=== PATIENT | female | born 1995 | race Hispanic/Latino ===

== ENCOUNTER 2018-05-02 21:33 | Emergency (ER) | payer BC, OTHER ==
[2018-05-02 22:38] LABS: Absolute Lymphocytes (CBC) 1.6 K/uL (0.7-4.9); Absolute Monocytes 0.6 K/uL (0.1-1.3); Absolute Neutrophil 5.7 K/uL (1.8-8.0); Basophils % 0.7 % (0-1.3); Eosinophils % 2.4 % (0-4.4); Hematocrit 35.4 % (36.0-45.0); Lymphocytes % 19.7 % (15.3-44.8); MCH 25.6 pg (27.0-35.0); MCV 75.7 fL (80-100); MPV 8.7 fL (7.6-11.3); Monocytes % 7.3 % (3.3-12.3); RBC Red Blood Cell Count 4.68 M/uL (3.86-4.86)
--- NOTE | 2018-05-02 23:09 | RAD REPORT ---
EXAM DESCRIPTION: US - Transvaginal OB - 05/02/2018 10:54 pm CLINICAL HISTORY: ABD PAIN COMPARISON: No comparisons FINDINGS: A single normal size and shaped gestational sac is seen within the uterus. Within the sac is a single pole with crown-rump length measuring 11 mm corresponding to 7 weeks 2 days gestati onal age. MAIKOL 12/17/2018. Cardiac activity is normal measuring 153 BPM. No unexpected findings. Maternal adnexa showed no worrisome finding. IMPRESSION: Single live early intrauterine gestation as detailed above.
[2018-05-02] MEDS ORDERED: PROMETHAZINE 25 MG/ML VIAL ONE (23:24)
[2018-05-02 23:26] LABS: BUN Blood Urea Nitrogen 10 mg/dL (7-18); Bicarbonate 27 mmol/L (21-32); Glucose Level 82 mg/dL (74-106); HCG, Quantitative 117945 mIU/mL (1-3); Potassium 3.3 mmol/L (3.5-5.1); Sodium Level 140 mmol/L (136-145)
--- NOTE | 2018-05-02 23:31 | EDPHYS ---
Physician Documentation [facility] Name: Edwardo Gonzalez Age: 22 yrs Sex: Female : 1995 Arrival Date: 05/02/2018 Time: 21:38 Bed 6 Private MD: ED Physician [place] HPI: 05/02 23:27 This 22 yrs old Female presents to ER via Ambulatory with complaints of 8 jr8 WEEKS PREG, LOWER AB PAIN. 23:27 The patient presents to the emergency department with abdominal pain, of the right jr8 lower quadrant and left lower quadrant, that started today, described as crampy, sharp. The estimated gestational age is 8 weeks. course: care: private OB physician. Associated signs and symptoms: The patient has no apparent associated signs or symptoms. The patient has not experienced similar symptoms in the past. The patient has not recently seen a physician. 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 - Social history:: Smoking status: Patient/guardian denies using tobacco. - Ebola Screening: : No symptoms or risks identified at this time. ROS: 23:27 Eyes: Negative for injury, pain, redness, and discharge, ENT: Negative for injury, jr8 pain, and discharge, Neck: Negative for injury, pain, and swelling, Cardiovascular: Negative for chest pain, palpitations, and edema, Respiratory: Negative for shortness of breath, cough, wheezing, and pleuritic chest pain, Back: Negative for injury and pain, MS/Extremity: Negative for injury and deformity, Skin: Negative for injury, rash, and discoloration, Neuro: Negative for headache, weakness, numbness, tingling, and seizure. 23:27 Abdomen/GI: Positive for abdominal pain, Negative for nausea, vomiting, and diarrhea, abdominal distension, anorexia, dysphagia, hematemesis, black/tarry stool, rectal pain, rectal bleeding, bowel incontinence, flatulence. Exam: 23:27 Cardiovascular: Regular rate and rhythm with a normal S1 and S2. No gallops, murmurs, jr8 or rubs. Normal PMI, no JVD. No pulse deficits. Respiratory: Lungs have equal breath sounds bilaterally, clear to auscultation and percussion. No rales, rhonchi or wheezes noted. No increased work of breathing, no retractions or nasal flaring. Back: No spinal tenderness. No costovertebral tenderness. Full range of motion. Skin: Warm, dry with normal turgor. Normal color with no rashes, no lesions, and no evidence of cellulitis. MS/ Extremity: Pulses equal, no cyanosis. Neurovascular intact. Full, normal range of motion. Neuro: Awake and alert, GCS 15, oriented to person, place, time, and situation. Cranial nerves II-XII grossly intact. Motor strength 5/5 in all extremities. Sensory grossly intact. Cerebellar exam normal. Normal gait. 23:27 Abdomen/GI: Inspection: abdomen appears normal, Bowel sounds: active, all quadrants, Palpation: soft, in all quadrants, mild abdominal tenderness, in the suprapubic area and left lower quadrant, mass, is not appreciated, rebound tenderness, is not appreciated, voluntary guarding, is not appreciated, involuntary guarding, is not appreciated, no appreciated organomegaly, Indicators: McBurney's point is not tender, Pickens's sign is negative, Rovsing's sign is negative, Liver: no appreciated palpable abnormalities, tenderness, is not appreciated. Vital Signs: 21:56 BP 113 / 71; Pulse 79; Resp 18; Temp 98.1; Pulse Ox 99% on R/A; Weight 53.98 kg (R); ak1 Height 4 ft. 11 in. (149.86 cm) (R); Pain 7/10; 22:21 BP 111 / 72; Pulse 90; Resp 18; Pulse Ox 98% on R/A; Pain 7/10; ea 23:45 BP 120 / 76; Pulse 80; Resp 18; Temp 97.8; Pulse Ox 99% on R/A; Pain 0/10; ea 21:56 Body Mass Index 24.03 (53.98 kg, 149.86 cm) ak1 MDM: 22:09 Patient medically screened. jr8 23:30 Data reviewed: vital signs, nurses notes, lab test result(s), radiologic studies, jr8 ultrasound, and as a result, I will discharge patient. Data interpreted: Pulse oximetry: on room air is 98 %. Interpretation: normal. Counseling: I had a detailed discussion with the patient and/or guardian regarding: the historical points, exam findings, and any diagnostic results supporting the discharge/admit diagnosis, lab results, radiology results, the need for outpatient follow up, an OB/Gyne specialist, to return to the emergency department if symptoms worsen or persist or if there are any questions or concerns that arise at home. 23:31 ED course: Patient without elevation in WBC count. Fetus normal appearing on US. jr8 Discussed with patient more then likely pain from broad ligament or from scar. 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 05/02 22:15 Order name: Quantitative Hcg; Complete Time: 23:29 05/02 22:15 Order name: Basic Metabolic Panel; Complete Time: 23:29 05/02 22:15 Order name: CBC with Diff; Complete Time: 23:21 05/02 23:04 Order name: Urine Dipstick--Ancillary (enter results); Complete Time: 02:25 ms 05/02 23:04 Order name: Urine --Ancillary (enter results); Complete Time: 02:25 ms 05/02 22:15 Order name: Urine Test (obtain specimen); Complete Time: 22:18 05/02 22:15 Order name: IV Saline Lock; Complete Time: 22:33 05/02 22:15 Order name: Labs collected and sent; Complete Time: 22:33 05/02 22:30 Order name: US Transvaginal Ob; Complete Time: 23:21 05/02 22:15 Order name: NPO; Complete Time: 22:18 05/02 22:15 Order name: Urine Dipstick-Ancillary (obtain specimen); Complete Time: 22:18 Administered Medications: 23:26 Drug: Phenergan 12.5 mg Route: IVP; Site: right antecubital; ea 23:48 Follow up: Response: Nausea unchanged lp1 23:36 Drug: Zofran 4 mg Route: IVP; Site: right antecubital; ea 05/03 00:05 Follow up: Response: No adverse reaction ea 05/02 23:48 Drug: Potassium Chloride 40 mEq Route: PO; lp1 05/03 00:05 Follow up: Response: No adverse reaction ea 05/02 23:48 Drug: Pepcid 20 mg Route: IVP; Site: right antecubital; ea 05/03 00:05 Follow up: Response: No adverse reaction ea Disposition: :18 Co-signature as Attending Physician, [place] MD Available for consultation at ps1 all times. Disposition: 05/02/18 23:31 Discharged to Home. Impression: Lower abdominal pain, unspecified. - Condition is Stable. - Discharge Instructions: Abdominal Pain, Adult, Abdominal Pain During . - Medication Reconciliation Form, Thank You Letter, Antibiotic Education, Prescription Opioid Use form. - Follow up: Private Physician; When: 2 - 3 days; Reason: Recheck today's complaints, Continuance of care, Re-evaluation by your physician. - Problem is new. - Symptoms have improved. Signatures: Dispatcher [employer] EDMS Faustina Oleary, RN RN lp1 Anastacio Peña PA PA jr8 Yeimy Holman RN RN ak1 Taylor Dumont RN RN [place] MD MD ps1 Corrections: (The following items were deleted from the chart) 00:09 07 23:31 05/02/2018 23:31 Discharged to Home. Impression: Lower abdominal pain, ea unspecified. Condition is Stable. Forms are Medication Reconciliation Form, Thank You Letter, Antibiotic Education, Prescription Opioid Use. Follow up: Private Physician; When: 2 - 3 days; Reason: Recheck today's complaints, Continuance of care, Re-evaluation by your physician. Problem is new. Symptoms have improved. jr8
--- NOTE | 2018-05-02 23:31 | ER ---
Nurse's Notes [facility] Name: Edwardo Gonzalez Age: 22 yrs Sex: Female : 1995 Arrival Date: 05/02/2018 Time: 21:38 Bed 6 Private MD: Diagnosis: Lower abdominal pain, unspecified Presentation: 05/02 21:57 Presenting complaint: Patient states: lower abd pain started today. pt sees Dr. Wilson ak1 for OB services. Transition of care: patient was not received from another setting of care. Onset of symptoms was May 02, 2018. Risk Assessment: Do you want to hurt yourself or someone else? Patient reports no desire to harm self or others. Initial Sepsis Screen: Does the patient meet any 2 criteria? No. Patient's initial sepsis screen is negative. Does the patient have a suspected source of infection? No. Patient's initial sepsis screen is negative. Care prior to arrival: None. 21:57 Method Of Arrival: Ambulatory ak1 21:57 Acuity: MARY 3 ak1 Triage Assessment: 22:01 General: Appears in no apparent distress. Behavior is calm, cooperative. Pain: ak1 Complains of pain in suprapubic area, right lower quadrant and left lower quadrant. EENT: No signs and/or symptoms were reported regarding the EENT system. Neuro: No deficits noted. Cardiovascular: No deficits noted. Respiratory: No deficits noted. GI: Reports lower abdominal pain. : Reports cramping, in lower abd Denies discharge, vaginal bleeding. Derm: No signs and/or symptoms reported regarding the dermatologic system. Musculoskeletal: No signs and/or symptoms reported regarding the musculoskeletal system. 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 - Social history:: Smoking status: Patient/guardian denies using tobacco. - Ebola Screening: : No symptoms or risks identified at this time. Screenin:03 Abuse screen: Denies threats or abuse. Denies injuries from another. Nutritional ak1 screening: No deficits noted. Tuberculosis screening: No symptoms or risk factors identified. Fall Risk None identified. Assessment: 22:03 Reassessment: Patient appears in no apparent distress at this time. No changes from ak1 previously documented assessment. see triage assessment. 22:19 General: Appears uncomfortable, Behavior is calm, cooperative, appropriate for age. ea Pain: Complains of pain in right lower quadrant and righ upper quadrant Pain currently is 9 out of 10 on a pain scale. Quality of pain is described as aching, Is intermittent. Neuro: Level of Consciousness is awake, alert, obeys commands, Oriented to person, place, time, situation. Cardiovascular: Patient's skin is warm and dry. Respiratory: Airway is patent Respiratory effort is even, unlabored, Respiratory pattern is regular, symmetrical, Breath sounds are clear bilaterally. GI: Abdomen is non-distended, Bowel sounds present X 4 quads. GI: Reports lower abdominal pain, upper abdominal pain, diarrhea, vomiting. : No signs and/or symptoms were reported regarding the genitourinary system. Derm: Skin is pink, warm \T\ dry. 22:35 Reassessment: Pt taken to ultrasound. ea 23:00 Reassessment: Patient and/or family updated on plan of care and expected duration. Pain ea level reassessed. Patient is alert, oriented x 3, equal unlabored respirations, skin warm/dry/pink. 05/03 00:05 Reassessment: Patient and/or family updated on plan of care and expected duration. Pain ea level reassessed. Patient is alert, oriented x 3, equal unlabored respirations, skin warm/dry/pink. Discharge instructions given to patient, verbalized the understanding of instruction. Vital Signs: 05/02 21:56 BP 113 / 71; Pulse 79; Resp 18; Temp 98.1; Pulse Ox 99% on R/A; Weight 53.98 kg (R); ak1 Height 4 ft. 11 in. (149.86 cm) (R); Pain 7/10; 22:21 BP 111 / 72; Pulse 90; Resp 18; Pulse Ox 98% on R/A; Pain 7/10; ea 23:45 BP 120 / 76; Pulse 80; Resp 18; Temp 97.8; Pulse Ox 99% on R/A; Pain 0/10; ea 21:56 Body Mass Index 24.03 (53.98 kg, 149.86 cm) ak1 ED Course: 21:38 Patient arrived in ED. al2 21:45 Taylor Dumont, RN is Primary Nurse. ea 21:56 Arm band placed on Patient placed in an exam room, on a stretcher, Patient notified of ak1 wait time. 22:00 Triage completed. ak1 22:03 Patient has correct armband on for positive identification. Bed in low position. Call ak1 light in reach. Side rails up X 1. Adult w/ patient. Pulse ox on. NIBP on. 22:03 Urine collected: clean catch specimen. ak1 22:09 Anastacio Peña PA is PHCP. jr8 22:09 [place] MD is Attending Physician. jr8 22:32 Inserted saline lock: 20 gauge in right antecubital area, using aseptic technique. ea Blood collected. 22:54 US Transvaginal Ob In Process Unspecified. EDMS 05/03 00:06 No provider procedures requiring assistance completed. IV discontinued, intact, ea bleeding controlled, No redness/swelling at site. Pressure dressing applied. Administered Medications: 05/02 23:26 Drug: Phenergan 12.5 mg Route: IVP; Site: right antecubital; ea 23:48 Follow up: Response: Nausea unchanged lp1 23:36 Drug: Zofran 4 mg Route: IVP; Site: right antecubital; ea 05/03 00:05 Follow up: Response: No adverse reaction ea 05/02 23:48 Drug: Potassium Chloride 40 mEq Route: PO; lp1 05/03 00:05 Follow up: Response: No adverse reaction ea 05/02 23:48 Drug: Pepcid 20 mg Route: IVP; Site: right antecubital; ea 05/03 00:05 Follow up: Response: No adverse reaction ea Outcome: 05/02 23:31 Discharge ordered by . jr8 05/03 00:06 Discharged to home ambulatory, with family. ea Condition: improved Discharge instructions given to patient, Instructed on discharge instructions, follow up and referral plans. Demonstrated understanding of instructions, follow-up care. 00:09 Patient left the ED. ea Signatures: Dispatcher [employer] EDMS Faustina Oleary RN RN lp1 Anastacio Peña PA PA jr8 Yeimy Holman RN RN ak1 Taylor Dumont RN RN Zarina Gomez2 Corrections: (The following items were deleted from the chart) 00:08 00:06 Discharge instructions given to patient, Instructed on discharge instructions, ea follow up and referral plans. medication usage, Demonstrated understanding of instructions, follow-up care, medications, ea 00:08 00:06 Prescriptions given X 2, ea ea
[2018-05-02] MEDS ORDERED: POTASSIUM CL SA 10 MEQ TAB PO ONE (23:49)
[2018-05-02] MEDS ORDERED: ONDANSETRON 4 MG/2 ML VIAL ONE (23:52)
[2018-05-02] MEDS ORDERED: FAMOTIDINE 20 MG/2 ML VIAL IV ONE (23:52)
[2018-05-03 00:01] LABS: Urine Blood NEGATIVE (NEG); Urine Glucose NEGATIVE (NEG); Urine Protein NEGATIVE (NEG); Urine Specific Gravity >1.030 (1.005-1.030); Urine pH 5.5 (5.0-7.0)
[2018-05-03 00:19] VITALS: BP 120/76; TEMP 97.8; O2SAT 99
== END 2018-05-03 00:09 | disposition home or self-care (01) ==
LOC: ER 21:33
DX: O26.891 Other specified pregnancy related conditions, first trimester (principal); R10.30 Lower abdominal pain, unspecified; Z3A.08 8 weeks gestation of pregnancy; Z88.1 Allergy status to other antibiotic agents
CPT/HCPCS: 36415; 76817; 80048; 81003; 81025; 84702; 85025; 96374; 96375; 99284; J2405; J2550

== ENCOUNTER 2020-01-30 21:45 | Emergency (ER) | payer OTHER, SELFPAY ==
--- OUTSIDE RECORDS SUMMARY | 2020-01-30 21:48 | XMS REPORT ---
:1995 Author Organization [facility] t Address [address] [place] [address] Care Team Providers Name Role Phone Unavailable Unavailable Unavailable Payers Payer Name Policy Type Policy Number Effective Date Expiration D ate Problems This patient has no known problems. Allergies, Adverse Reactions, Alerts Allergy Name Allergy Status Severity Reaction(s) Onset Inactive Treat ing Comments Type Date Date Clinician amoxicillin DA Active MO 2018-11 00:00:0 0 amoxicillin DA Active MO 2018-11 00:00:0 0 Medications This patient has no known medications. Results Test Description Test Time Test Comments Text Results Atomic Results Result Comments HGB HCT 2018-11-29 21:09:00 Test Item Value Reference Range Comments HEMOGLOBIN (test code = HGB) 8.7 g/dL 10.7-13.9 HEMATOCRIT (test code = HCT) 28.4 % 32.1-42.1 AG HEPATITIS B [id number] 16:47:00 Test Item Value Reference Range Comments AG HEPATITIS B SURFACE (test code = HBSAG) NONREACTIVE NONRE ACTIVE IS CONSENT FORM SIGNED FOR HIV TESTING? YAB HEPATITIS C [id number] 16:47:00 Test Item Value Reference Range Comments AB HEPATITIS C (test code = HCVAB) NONREACTIVE NONREACTIVE SIGNAL TO CUTOFF (test code = CUTOFF) 0.10 <0.80 IS CONSENT FORM SIGNED FOR HIV TESTING? YAB [id number] 16:47:00 Test Item Value Reference Range Comments AB TREPONEMA (test code = TREPAB) NONREACTIVE NONREACTIVE IS CONSENT FORM SIGNED FOR HIV TESTING? YAB HIV 1 16:47:00 Test Item Value Reference Range Comments AB HIV 1 2 (test code = NONREACTIVE NONREACTIVE Done b y Siemens Centaur 4th [id number]) Gen HIV Ag/Ab Co mbo Screen IS CONSENT FORM SIGNED FOR HIV TESTING? YCBC W/AUTO [id number] 15:28:00 Test Item Value Reference Range Comments WHITE BLOOD CELL (test code = WBC) 11.8 K/mm3 6.6-12.1 RED BLOOD CELL (test code = RBC) 3.79 M/mm3 3.45-5.01 HEMOGLOBIN (test code = HGB) 9.1 g/dL 10.7-13.9 HEMATOCRIT (test code = HCT) 29.3 % 32.1-42.1 MEAN CELL VOLUME (test code = MCV) 77 fL 84.1-94.8 MEAN CELL HGB (test code = MCH) 24.0 pg 27-35 MEAN CELL HGB CONCETRATION (test code = MCHC) 31.1 gm/dL 32 .2-34.1 RED CELL DISTRIBUTION WIDTH (test code = RDW) 14.7 % 12 .4-16.5 PLATELET COUNT (test code = PLT) 223 K/mm3 133-385 IMMATURE PLATELET FRACTION (test code = IPF) 0.0 % 0.0 -10.8 MEAN PLATELET VOLUME (test code = MPV) 11.2 fl 9.1-12.7 NEUTROPHIL % (test code = NT%) 71.9 % 56.5-79.4 LYMPHOCYTE % (test code = LY%) 16.4 % 14.3-34.3 MONOCYTE % (test code = MO%) 7.6 % 5.1-10.4 EOSINOPHIL % (test code = EO%) 1.7 % 0.1-3.0 BASOPHIL % (test code = BA%) 0.3 % 0.1-1.0 NEUTROPHIL # (test code = NT#) 8.5 K/mm3 LYMPHOCYTE # (test code = LY#) 1.9 K/mm3 MONOCYTE # (test code = MO#) 0.9 K/mm3 EOSINOPHIL # (test code = EO#) 0.20 K/mm3 BASOPHIL # (test code = BA#) 0.0 K/mm3 RBC MORPHOLOGY REQUIRED (test code = RBCM) NORMAL TRISTON L PLATELET MORPHOLOGY REQUIRED (test code = PLTMR) NORMAL NORMAL
--- OUTSIDE RECORDS SUMMARY | 2020-01-30 21:48 | XMS REPORT | Summary of Care ---
:1995 Author Organization [facility] - [facility] Address [address] [place] [address] Care Team Providers Name Role Phone Ravi Turner APPRAISAL MANAGER Primary Care Provider Reason for Visit Reason Comments NEXPLANON check Encounter Details Date Type Department Care Team Description [facility] (Primary Dx) [address] [facility] [address] [place], [place] [address] [place] [address] [phone] Allergies Active Allergy Reactions Severity Noted Date Comments Amoxicillin Unknown - See comments 09/11/2015 documented as of this encounter (statuses as of 06/07/2019) Medications Medication Sig Dispensed Refills Start Date End Date Status vitamin Take 1 tablet 100 tablet 3 09/15/2017 019 Discontinued w/FA tablet by mouth daily. docusate calcium Take 1 capsule 60 capsule 1 09/15/20172018 Discontinued 240 mg capsule by mouth once daily as needed for Constipation. ibuprofen 600 mg Take 1 tablet 30 tablet 1 09/15/2017 06/06/20 19 Discontinued tablet by mouth every 6 (six) hours as needed for Pain (scale 1-3) or Pain (scale 4-6) (Pain). Take with food or milk. HYDROcodone-aceta Take 1 tablet 20 tablet 0 09/15/2017 019 Discontinued minophen 5-325 mg by mouth every tablet 6 (six) hours as needed for Pain (scale 4-6) or Pain (scale 7-10). ferrous sulfate Take 1 tablet 90 tablet 2 09/15/2017 9 Discontinued 325 mg (65 mg by mouth 3 iron) tablet (three) times daily with meals. foLIC acid 1 mg Take 1 tablet 30 tablet 3 09/15/2017 9 Discontinued tablet by mouth daily. Hospital, Clinic, or Other Ordered Dose Route Frequency Start Date End Date Status Facility Administered Medication medroxyPROGESTERone 150 mg IM [id number] 02/19/2019 Active (DEPO-PROVERA) injection 150 mgIndications: Encounter for management and injection of depo-Provera documented as of this encounter (statuses as of 06/07/2019) Active Problems No known active problemsdocumented as of this encounter (statuses as of 06/07/2019) Resolved Problems Problem Noted Date Resolved Date Anemia due to blood loss, acute 09/15/2017 10/05/20 18 with 37 weeks completed gestation 09/14/2017 10/05/2018 Premature labor 09/14/2017 10/05/2018 Meconium in amniotic fluid 09/14/2017 10/05/2018 37 weeks gestation of 09/14/2017 02/06/20 19 Liveborn by 09/14/2017 10/05/2018 Fetus abdominal wall defect, fetus 1 09/14/2017 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 documented as of this encounter Last Filed Vital Signs Vital Sign Reading Time Taken Comments Blood Pressure 115/73 06/06/2019 2:37 PM CDT Pulse 94 06/06/2019 2:37 PM CDT Temperature 37.2 C (98.9 F) 06/06/2019 2:37 PM CDT Respiratory Rate 16 06/06/2019 2:37 PM CDT Oxygen Saturation - - Inhaled Oxygen Concentration - - Weight 54.1 kg (119 lb 4 oz) 06/06/2019 2:37 PM CDT Height 149.9 cm (4' 11") 06/06/2019 2:37 PM CDT Body Mass Index 24.09 06/06/2019 2:37 PM CDT documented in this encounter Progress Notes Timothy Turner, APPRAISAL MANAGER - 06/06/2019 2:45 PM CDT Chief complaint: Chief Complaint Patient presents with NEXPLANON check HPI Patient is a here for Nexplanon check. Patient denies any complaints. Pating desires to continue with Nexplanon as BCM. Histories OB History Para Term AB Living 2 2 2 0 0 2 SAB TAB Ectopic Multiple Live Births 2 # Outcome Date GA Lbr Tom/2nd Weight Sex Delivery Anes PTL Lv 2 Term 11/29/18 37w0d F SEC CHICA 1 Term 09/14/17 37w2d M SEC CHICA Obstetric Comments Both pregnancies affected by gastroschesis Past Medical History: Diagnosis Date Menstrual disorder 2011 Ovarian cyst Scoliosis Syphilis treated Family History Problem Relation Age of Onset No Significant Medical Problems Mother Hypertension Father No Significant Medical Problems Sister Asthma Brother Diabetes Maternal Aunt Diabetes Maternal Uncle No Significant Medical Problems Paternal Aunt No Significant Medical Problems Paternal Uncle Breast Cancer Maternal Grandmother Diabetes Maternal Grandmother Diabetes Maternal Grandfather Diabetes Paternal Grandmother Hypertension Paternal Grandmother High cholesterol Paternal Grandmother Family Status Relation Name Status Mo Alive Fa Alive Sis Alive Bro Alive MAunt Alive MUnc Alive PAunt Alive PUnc Alive MGMo MGFa Alive PGMo Alive PGFa Alive Past Surgical History: Procedure Laterality Date APPENDECTOMY 2014 with subsequent rupture SECTION N/A 09/14/2017 Surgeon: Gerson Wilson MD; Location: [facility] Labor and Delivery OR Location Social History Socioeconomic History Marital status: Single Spouse name: Not on file Number of children: Not on file Years of education: Not on file Highest education level: Not on file Occupational History Not on file Social Needs Financial resource strain: Not on file Food insecurity: Worry: Not on file Inability: Not on file Transportation needs: Medical: Not on file Non-medical: Not on file Tobacco Use Smoking status: Former Smoker Last attempt to quit: 02/05/2017 Years since quittin.3 Smokeless tobacco: Never Used Substance and Sexual Activity Alcohol use: Yes Comment: socially Drug use: No Types: Marijuana Comment: quit 5 yrs ago Sexual activity: Yes Partners: Male control/protection: Coitus interruptus Comment: last sexual intercourse 02/04/2019 Lifestyle Physical activity: Days per week: Not on file Minutes per session: Not on file Stress: Not on file Relationships Social connections: Talks on phone: Not on file Gets together: Not on file Attends protestant service: Not on file Active member of club or organization: Not on file Attends meetings of clubs or organizations: Not on file Relationship status: Not on file Intimate partner violence: Fear of current or ex partner: Not on file Emotionally abused: Not on file Physically abused: Not on file Forced sexual activity: Not on file Other Topics Concern Not on file Social History Narrative Patient lives with boyfriend and children. Social History Substance and Sexual Activity Sexual Activity Yes Partners: Male control/protection: Coitus interruptus Comment: last sexual intercourse 02/04/2019 Labs No new labs Radiology No new radiology. Allergies Edwardo is allergic to amoxicillin. Medications Edwardo has a current medication list which includes the following Facility- Administered Medications:medroxyprogesterone. Review of Systems Constitutional: Negative for activity change, appetite change, fatigue, unexpected weight change, weight gain and weight loss. HENT: Negative for sore throat. Eyes: Negative for visual disturbance. Respiratory: Negative for cough and shortness of breath. Breasts: Negative for discharge, mass, pain and unequal size. Cardiovascular: Negative for chest pain, palpitations and leg swelling. Gastrointestinal: Negative. Negative for abdominal pain, anal bleeding, blood in stool, constipation, diarrhea, nausea, rectal pain and vomiting. Genitourinary: Negative for bladder incontinence, dysuria, urgency, flank pain, vaginal bleeding, vaginal discharge, genital sores, vaginal pain and pelvic pain. Skin: Negative for color change and rash. Neurological: Negative. Negative for dizziness, syncope and headaches. Psychiatric/Behavioral: Negative for confusion, self-injury and sleep disturbance. The patient is not nervous/anxious. Hematological: Negative for cold intolerance and heat intolerance. Endocrine: Negative for hair loss, cold intolerance, heat intolerance, weight gain and weight loss. BP 115/73 (BP Location: Right arm, Patient Position: Sitting, BP CUFF SIZE: Adult Small) | Pulse 94 | Temp 37.2 C (98.9 F) (Oral) | Resp 16 | Ht 4' 11" (1.499 m) | Wt 119 lb 4 oz (54.1 kg) | LMP 06/06/2019 (Approximate) | BMI 24.09 kg/m Pregravid BMI: Could not be calculated Physical Exam Vitals reviewed. Constitutional: She is oriented to person, place, and time. She appears well- developed and well-nourished. Her body habitus is normal. Cardiovascular: Regular rate and rhythm. No peripheral edema present. Pulmonary/Chest: Normal inspiratory effort. Neuro/Psychiatric: Inappropriate mood and affect. She is oriented to person, place, and time. Skin: Skin normal. No lesion, no rash and no ulceration present. Nexplanon Palpated in right hand. Assessment/Plan Nexplanon in place (primary encounter diagnosis) Comment: Nexplanon palpated in right arm. Plan: Patient desires to continue with Nexplanon contraception. Provider has reviewed risks, benefits and alternatives contraception methods. Provider has also reviewed use, side effects and effectiveness of desires BCM vs other BCM. Encouraged abstinence until menses. Encouraged use of condoms as back up x 1 month and for safer sex. Return to clinic for WWE. Discussed treatment options. Medications as ordered. Reviewed patient instructions and provided printed copy. This visit did not involve counseling and coordination that comprised more than 50% of the visit time. KIN Garcia 06/07/2019 8:59 AM documented in this encounter Plan of Treatment Date Type Specialty Care Team Description 07/09/2019 Office Visit [facility]ell[facility] Arley Doll, [facility] [address] [place], [place] [address] [phone] Health Maintenance Due Date Last Done Comments MENINGOCOCCAL B VACCINES ( of 12/21/2005 2 - Risk Bexsero 2-dose series) VARICELLA VACCINES (1 of 2 - 12/21/2008 13+ 2-dose series) HPV VACCINES (1 - Female 12/21/2010 3-dose series) DTaP,Tdap,and Td Vaccines (1 - 12/21/2014 Tdap) INFLUENZA VACCINE (#1) 2019 09/15/2017 CHLAMYDIA SCREENING 02/06/2020 02/05/2019, 11/18/2018, 01/19/2016 PAP SMEAR 02/05/2022 02/05/2019 PNEUMOCOCCAL 0-64 YEARS Aged Out No longe r eligible based COMBINED SERIES on patient's age to complete this to [facility] documented as of this encounter Results Not on filedocumented in this encounter Visit Diagnoses Diagnosis Nexplanon in place - Primary Presence of subdermal contraceptive thien ce documented in this encounter Insurance Payer Benefit Plan Subscriber ID Effective Phone Address Typ e / Group Dates [facility] xxxxxxxxx 2019-Jennyfer [phone] Medicaid WOMEN nt 2005 [place] [address] documented as of this encounter Advance Directives Name Relationship Healthcare Agent Communication Relationship Ruslan Kessler Significant Other Primary healthcare agent
--- OUTSIDE RECORDS SUMMARY | 2020-01-30 21:48 | XMS REPORT | Summary of Care ---
:1995 Author Organization [facility] - Health Address [address] [place] [address] Care Team Providers Name Role Phone Ravi Turner KIN Primary Care Provider Encounter Details Date Type Department Care Team Description 06/06/2019 Orders Only [facility] Doctor Unassigned, No [address] [facility] [place] [address] [address] [place] [address] Allergies Active Allergy Reactions Severity Noted Date Comments Amoxicillin Unknown - See comments 09/11/2015 documented as of this encounter (statuses as of 06/06/2019) Medications Medication Sig Dispensed Refills Start Date End Date Status vitamin w/FA Take 1 tablet by 100 tablet 3 09/15/2017 Active tablet mouth daily. docusate calcium 240 Take 1 capsule by 60 capsule 1 09/15/2017 Active mg capsule mouth once daily as needed for Constipation. ibuprofen 600 mg Take 1 tablet by 30 tablet 1 09/15/2017 Active tablet mouth every 6 (six) hours as needed for Pain (scale 1-3) or Pain (scale 4-6) (Pain). Take with food or milk. HYDROcodone-acetamino Take 1 tablet by 20 tablet 0 09/15/2017 Active phen 5-325 mg tablet mouth every 6 (six) hours as needed for Pain (scale 4-6) or Pain (scale 7-10). ferrous sulfate 325 Take 1 tablet by 90 tablet 2 09/15/2017 Active mg (65 mg iron) mouth 3 (three) tablet times daily with meals. foLIC acid 1 mg Take 1 tablet by 30 tablet 3 09/15/2017 Active tablet mouth daily. Hospital, Clinic, or Other Ordered Dose Route Frequency Start Date End Date Status Facility Administered Medication medroxyPROGESTERone 150 mg IM [id number] 02/19/2019 Active (DEPO-PROVERA) injection 150 mgIndications: Encounter for management and injection of depo-Provera documented as of this encounter (statuses as of 06/06/2019) Active Problems No known active problemsdocumented as of this encounter (statuses as of 06/06/2019) Resolved Problems Problem Noted Date Resolved Date [...] as of this encounter (statuses as of 06/06/2019) Immunizations Name Administration Dates Next Due Influenza [...] of this encounter Last Filed Vital Signs Not on filedocumented in this encounter Plan of Treatment Date Type Specialty Care Team Description 06/06/2019 Office Visit OB Raes Timothy Turner, [employer] [address] [place], [place] [address] [phone] 07/09/2019 Office Visit [facility] rAley Doll, WHCNP [address] [place], [place] [address] [phone] Health Maintenance Due Date Last Done Comments MENINGOCOCCAL B VACCINES (1 of 12/21/2005 2 - Risk Bexsero 2-dose series) VARICELLA VACCINES (1 of 2 - 12/21/2008 13+ 2-dose series) HPV VACCINES (1 - Female 12/21/2010 3-dose series) DTaP,Tdap,and Td Vaccines (1 - 12/21/2014 Tdap) INFLUENZA VACCINE 06/24/2019 09/15/2017 CHLAMYDIA SCREENING 02/06/2020 02/05/2019, 11/18/2018, 01/19/2016 PAP SMEAR 02/05/2022 02/05/2019 PNEUMOCOCCAL 0-64 YEARS Aged Out No longe r eligible based COMBINED SERIES on patient's age to complete this to [facility] documented as of this encounter Procedures Procedure Name Priority Date/Time Associated Diagnosis Comme nts NO SHOW OR MISSED Routine 06/06/2019 2:29 PM APPOINTMENT POLICY CDT ACKNOWLEDGEMENT documented in this encounter Results Not on filedocumented in this encounter Insurance Payer Benefit Plan Subscriber ID Effective Phone Address Typ e / Group Dates [facility] xxxxxxxxx 2019-Prese [phone] Medicaid [place]OM[place] [id number] [place] [address] documented as of this encounter Advance Directives Name Relationship Healthcare Agent Communication Relationship Ruslan Kessler Significant Other Primary healthcare agent
--- OUTSIDE RECORDS SUMMARY | 2020-01-30 21:49 | XMS REPORT | Summary of Care ---
:1995 Author Organization [facility] - [facility] Address [address] [place] [address] Care Team Providers Name Role Phone Ravi Turner BIODIESEL PRODUCT DEVELOPMENT MANAGER Primary Care Provider Reason for Visit Reason Comments NEXPLANON check Encounter Details Date Type Department Care Team Description [facility] (Primary Dx) [address] [facility] [address] [place], [place] [address] [place] [address] [phone] Allergies Active Allergy Reactions Severity Noted Date [...] Facility Administered Medication medroxyPROGESTERone 150 mg IM [id number] 02/19/2019 Active (DEPO-PROVERA) injection 150 mgIndications: Encounter [...] in this encounter Progress Notes Timothy Turner, BIODIESEL PRODUCT DEVELOPMENT MANAGER - 06/06/2019 2:45 PM CDT Chief [...] N/A 09/14/2017 Surgeon: Gerson Wilson MD; Location: [facility] Labor and Delivery OR Location Social History [...] file Gets together: Not on file Attends denominational service: Not on file Active member of [...] Visit [facility] [address] [place], [place] [address] [phone] Health Maintenance Due Date Last Done Comments [...] on patient's age to complete this to [facility] documented as of this encounter Results Not on filedocumented in this encounter Visit Diagnoses Diagnosis Nexplanon in place - Primary Presence of subdermal contraceptive thien ce documented in this encounter Insurance Payer Benefit Plan Subscriber ID Effective Phone Address Typ e / Group Dates [facility] xxxxxxxxx 2019-Jennyfer [phone] Medicaid WOMEN nt 2005 [place] [address] documented as of this encounter Advance Directives Name Relationship Healthcare Agent Communication Relationship Ruslan Kessler Significant Other Primary healthcare agent
[2020-01-30] MEDS ORDERED: NA CHLORIDE 0.9% 1,000 ML ONE (22:19)
[2020-01-30 22:31] LABS: Urine Amorphous Sediment 3+ /HPF (NONE SEEN); Urine Bacteria <20 /HPF (<20); Urine Culture Reflex Order NOT NEEDED; Urine RBC <5 /HPF (NONE SEEN)
[2020-01-30 22:44] LABS: Absolute Lymphocytes (CBC) 1.2 K/uL (0.7-4.9); Basophils % 0.4 % (0-1.3); Hematocrit 40.4 % (36.0-45.0); Lymphocytes % 10.2 % (15.3-44.8); MPV 8.5 fL (7.6-11.3); RBC Red Blood Cell Count 4.96 M/uL (3.86-4.86)
[2020-01-30 22:57] LABS: BUN Blood Urea Nitrogen 14 mg/dL (7-18); Bicarbonate 26 mmol/L (21-32); Glucose Level 86 mg/dL (74-106); Potassium 3.7 mmol/L (3.5-5.1); Sodium Level 142 mmol/L (136-145)
[2020-01-31 00:12] LABS: Urine Blood NEGATIVE (NEG); Urine Glucose NEGATIVE (NEG); Urine Protein NEGATIVE (NEG); Urine Specific Gravity >1.030 (1.005-1.030)
--- NOTE | 2020-01-31 01:27 | EDPHYS ---
Physician Documentation [facility] Name: Edwadro Gonzalez Age: 24 yrs Sex: Female : 1995 Arrival Date: 01/30/2020 Time: 21:50 Bed 20 Private MD: ED Physician Ronni Marie HPI: 01/29 22:16 This 24 yrs old Female presents to ER via Ambulatory with complaints of rn Dizziness, Headache, Vision Problem. 22:16 The patient presents with lightheadedness. The patient presents with feeling faint. rn Onset: The symptoms/episode began/occurred just prior to arrival. Context: occurred at home, occurred while the patient was standing. Modifying factors: The symptoms are alleviated by nothing, the symptoms are aggravated by changing position. Severity of symptoms: At their worst the symptoms were moderate in the emergency department the symptoms have resolved. The patient has not experienced similar symptoms in the past. 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 Now feels better, felt heart racing. No chest pain/sob/abd pain. No vaginal bleeding. reports intermittent left sided headaches for 2-3 months, had some pain around this episode as well. . DATA ARCHITECT MANAGER: 21:55 LMP 01/18/2020 ca1 Historical: - Allergies: 21:55 Amoxicillin; ca1 - Home Meds: 21:55 None [Active]; ca1 - PMHx: 21:55 scoliosis; ca1 - PSHx: 21:55 Appendectomy; ; ca1 - Immunization history:: Adult Immunizations up to date, Flu vaccine is up to date. - Social history:: Smoking status: Patient denies any tobacco usage or history of. - Family history:: not pertinent. - Hospitalizations: : No recent hospitalization is reported. ROS: 22:16 Constitutional: Negative for fever, chills, and weight loss, Eyes: Negative for injury, rn pain, redness, and discharge, Neck: Negative for injury, pain, and swelling, Cardiovascular: Negative for chest pain, and edema, Respiratory: Negative for shortness of breath, cough, wheezing, and pleuritic chest pain, Abdomen/GI: Negative for abdominal pain, nausea, vomiting, diarrhea, and constipation, Back: Negative for injury and pain, : Negative for injury, bleeding, discharge, and swelling, MS/Extremity: Negative for injury and deformity, Skin: Negative for injury, rash, and discoloration, Neuro: Negative for numbness, tingling, and seizure. Exam: 22:16 Constitutional: This is a well developed, well nourished patient who is awake, alert, rn and in no acute distress. Head/Face: Normocephalic, atraumatic. Eyes: Pupils equal round and reactive to light, extra-ocular motions intact. Lids and lashes normal. Conjunctiva and sclera are non-icteric and not injected. Cornea within normal limits. Periorbital areas with no swelling, redness, or edema. Neck: Trachea midline, no thyromegaly or masses palpated, and no cervical lymphadenopathy. Supple, full range of motion without nuchal rigidity, or vertebral point tenderness. No Meningismus. Cardiovascular: Regular rate and rhythm. No pulse deficits. Respiratory: Speaking full sentences. No increased work of breathing, no retractions or nasal flaring. Abdomen/GI: soft, non-tender Skin: Warm, dry MS/ Extremity: Pulses equal, no cyanosis. Neurovascular intact. Full, normal range of motion. Equal circumference. Neuro: Awake and alert, GCS 15, oriented to person, place, time, and situation. Cranial nerves II-XII grossly intact. Motor strength 5/5 in all extremities. Sensory grossly intact. Cerebellar exam normal. 22:20 ECG was reviewed by the Attending Physician. rn Vital Signs: 21:51 BP 128 / 86; Pulse 91; Resp 17 S; Temp 97.7(TE); Pulse Ox 100% on R/A; Weight 55.79 kg ca1 (R); Height 4 ft. 11 in. (149.86 cm) (R); Pain 7/10; 23:57 BP 112 / 76; Pulse 89; Resp 16 S; Pulse Ox 100% on R/A; jd3 01/30 01:26 BP 118 / 81; Pulse 92; Resp 17 S; Pulse Ox 100% on R/A; jd3 01/29 21:51 Body Mass Index 24.84 (55.79 kg, 149.86 cm) ca1 MDM: 01/29 21:57 Patient medically screened. rn 01/30 01:25 Differential diagnosis: cardiac arrhythmia, generalized weakness, hypovolemia, rn idiopathic dizziness, near-syncope, PE, early infection, migraine. Data reviewed: vital signs, nurses notes, lab test result(s), EKG, radiologic studies, CT scan, and as a result, I will discharge patient. Counseling: I had a detailed discussion with the patient and/or guardian regarding: the historical points, exam findings, and any diagnostic results supporting the discharge/admit diagnosis, lab results, radiology results, the need for outpatient follow up, to return to the emergency department if symptoms worsen or persist or if there are any questions or concerns that arise at home. Response to treatment: the patient's condition has returned to base line, the patient is now symptom free, and as a result, I will discharge patient. Special discussion: I discussed with the patient/guardian in detail that at this point there is no indication for admission to the hospital. It is understood, however, that if the symptoms persist or worsen the patient needs to return immediately for re-evaluation. 01/29 22:11 Order name: CBC with Diff; Complete Time: 23:07 rn 01/29 22:11 Order name: Basic Metabolic Panel; Complete Time: 23:07 rn 01/29 22:11 Order name: Urine Microscopic Only; Complete Time: 23:07 rn 01/29 22:11 Order name: D-Dimer; Complete Time: 23:07 rn 01/29 23:13 Order name: Urine --Ancillary (enter results); Complete Time: 00:19 01/29 23:13 Order name: Urine Dipstick--Ancillary (enter results); Complete Time: 00:19 01/29 22:11 Order name: CT Head Brain wo Cont rn 01/29 22:11 Order name: IV Start; Complete Time: 22:34 rn 01/29 22:11 Order name: Urine Test (obtain specimen); Complete Time: 22:15 rn 01/29 22:11 Order name: Urine Dipstick-Ancillary (obtain specimen); Complete Time: 22:15 rn 01/29 22:11 Order name: EKG; Complete Time: 22:12 rn 01/29 22:11 Order name: EKG - Nurse/Tech; Complete Time: 22:15 rn 01/29 23:08 Order name: CT Chest For PE Angio rn EC/08 22:20 Rate is 88 beats/min. Rhythm is regular. QRS [place] is Normal. NM interval is normal. QRS rn interval is normal. QT interval is normal. No Q waves. T waves are Normal. No ST changes noted. Clinical impression: Normal ECG. Interpreted by me. Reviewed by me. Administered Medications: 22:37 Drug: NS 0.9% 1000 ml Route: IV; Rate: 1000 ml; Site: right antecubital; jd3 23:35 Follow up: Response: No adverse reaction; IV Status: Completed infusion; IV Intake: jd3 1000ml Disposition: 01/31/20 01:27 Discharged to Home. Impression: Near syncope. - Condition is Stable. - Discharge Instructions: Near-Syncope. - Medication Reconciliation Form, Thank You Letter, Antibiotic Education, Prescription Opioid Use form. - Follow up: Private Physician; When: As needed; Reason: Recheck today's complaints, Re-evaluation by your physician. - Problem is new. - Symptoms have improved. Signatures: Dispatcher [employer] EDMS Ronni Marie MD MD rn Davies, Jonathon, RN RN jd3 Acob, SHARLA Santamaria RN [facility] Corrections: (The following items were deleted from the chart) 01/30 01:40 01:27 01/31/2020 01:27 Discharged to Home. Impression: Near syncope. Condition is jd3 Stable. Forms are Medication Reconciliation Form, Thank You Letter, Antibiotic Education, Prescription Opioid Use. Follow up: Private Physician; When: As needed; Reason: Recheck today's complaints, Re-evaluation by your physician. Problem is new. Symptoms have improved. rn
--- NOTE | 2020-01-31 01:27 | ER ---
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 Reports headache for couple months that starts at the back of the eyes and goes down to the neck and ear. Reports seeing flashing lights with the headache. Coronavirus screen: Proceed with normal triage. Patient denies a cough. Patient denies shortness of breath or difficulty breathing. Patient denies measured and/or subjective temperature greater than 100.4F prior to today's visit. Patient denies travel on a cruise ship or to a country the [facility] currently lists as an affected area. Patient denies contact with known and/or suspected case of COVID-19. Ebola Screen: Patient negative for fever greater than or equal to 101.5 degrees Fahrenheit, and additional compatible Ebola Virus Disease symptoms Patient denies exposure to infectious person. Patient denies travel to an Ebola-affected area in the 21 days before illness onset. No symptoms or risks identified at this time. Initial Sepsis Screen: Does the patient meet any 2 criteria? No. Patient's initial sepsis screen is negative. Does the patient have a suspected source of infection? No. Patient's initial sepsis screen is negative. Risk Assessment: Do you want to hurt yourself or someone else? Patient reports no desire to harm self or others. Onset of symptoms was January 30, 2020. 21:51 Method Of Arrival: Ambulatory ca1 21:51 Acuity: MARY 3 ca1 RN ADMISSION: 21:55 LMP 01/18/2020 ca1 Historical: - Allergies: 21:55 Amoxicillin; ca1 - Home Meds: 21:55 None [Active]; ca1 - PMHx: 21:55 scoliosis; ca1 - PSHx: 21:55 Appendectomy; ; ca1 - Immunization history:: Adult Immunizations up to date, Flu vaccine is up to date. - Social history:: Smoking status: Patient denies any tobacco usage or history of. - Family history:: not pertinent. - Hospitalizations: : No recent hospitalization is reported. Screenin:03 Abuse screen: Denies threats or abuse. Nutritional screening: No deficits noted. jd3 Tuberculosis screening: No symptoms or risk factors identified. Fall Risk Ambulatory Aid- None/Bed Rest/Nurse Assist (0 pts). Gait- Normal/Bed Rest/Wheelchair (0 pts) Mental Status- Oriented to own ability (0 pts). Total [place] Fall Scale indicates No Risk (0-24 pts). Assessment: 22:01 General: Appears in no apparent distress. uncomfortable, Behavior is calm, cooperative, jd3 appropriate for age. Pain: Complains of pain in head Quality of pain is described as aching, pressure. Neuro: Level of Consciousness is awake, alert, obeys commands, Oriented to person, place, time, situation, Pupils are PERRLA, Reports dizziness. Cardiovascular: Denies chest pain, Heart tones S1 S2 present Capillary refill < 3 seconds Patient's skin is warm and dry. Respiratory: Airway is patent Respiratory effort is even, unlabored, Respiratory pattern is regular, symmetrical, Breath sounds are clear bilaterally. Denies cough, shortness of breath. GI: No signs and/or symptoms were reported involving the gastrointestinal system. Patient currently denies constipation, diarrhea, nausea, vomiting. : No signs and/or symptoms were reported regarding the genitourinary system. EENT: Reports flashing lights and vision loss with headache. Derm: Skin is intact, Skin is dry, Skin is normal, Skin temperature is warm. Musculoskeletal: Circulation, motion, and sensation intact. Range of motion: intact in all extremities. 23:57 Reassessment: Patient appears in no apparent distress at this time. No changes from jd3 previously documented assessment. Patient and/or family updated on plan of care and expected duration. Pain level reassessed. Patient is alert, oriented x 3, equal unlabored respirations, skin warm/dry/pink. awaiting results. 01/30 01:25 Reassessment: Patient appears in no apparent distress at this time. Patient and/or jd3 family updated on plan of care and expected duration. Pain level reassessed. Patient is alert, oriented x 3, equal unlabored respirations, skin warm/dry/pink. awaiting results. 01:37 Reassessment: Patient appears in no apparent distress at this time. Patient and/or jd3 family updated on plan of care and expected duration. Pain level reassessed. Patient is alert, oriented x 3, equal unlabored respirations, skin warm/dry/pink. reported understanding of discharge instructions. Patient states feeling better. Vital Signs: 01/29 21:51 BP 128 / 86; Pulse 91; Resp 17 S; Temp 97.7(TE); Pulse Ox 100% on R/A; Weight 55.79 kg ca1 (R); Height 4 ft. 11 in. (149.86 cm) (R); Pain 7/10; 23:57 BP 112 / 76; Pulse 89; Resp 16 S; Pulse Ox 100% on R/A; jd3 01/30 01:26 BP 118 / 81; Pulse 92; Resp 17 S; Pulse Ox 100% on R/A; jd3 01/29 21:51 Body Mass Index 24.84 (55.79 kg, 149.86 cm) ca1 ED Course: 01/29 21:50 Patient arrived in ED. es 21:54 Triage completed. ca1 21:55 Arm band placed on right wrist. ca1 21:57 Ronni Marie MD is Attending Physician. rn 22:00 Eliseo Woodruff RN is Primary Nurse. jd3 22:03 Patient has correct armband on for positive identification. Bed in low position. Call jd3 light in reach. Side rails up X 1. surveillance monitor on. Pulse ox on. NIBP on. 22:34 Inserted saline lock: 20 gauge in right antecubital area, using aseptic technique. jd3 Blood collected. 22:37 CT Head Brain wo Cont In Process Unspecified. EDMS 01/30 01:07 CT Chest For PE Angio In Process Unspecified. EDMS 01:38 No provider procedures requiring assistance completed. IV discontinued, intact, jd3 bleeding controlled, No redness/swelling at site. Pressure dressing applied. Administered Medications: 01/29 22:37 Drug: NS 0.9% 1000 ml Route: IV; Rate: 1000 ml; Site: right antecubital; jd3 23:35 Follow up: Response: No adverse reaction; IV Status: Completed infusion; IV Intake: jd3 1000ml Intake: 23:35 IV: 1000ml; Total: 1000ml. jd3 Outcome: 01/30 01:27 Discharge ordered by . rn 01:39 Discharged to home ambulatory. jd3 01:39 Condition: stable 01:39 Discharge instructions given to patient, Instructed on discharge instructions, follow up and referral plans. Demonstrated understanding of instructions, follow-up care. 01:40 Patient left the ED. jd3 Signatures: Dispatcher [employer] Piedad Jones Roman, MD MD rn Davies, Jonathon, RN RN jd3 Hina Vivar RN RN ca1
[2020-01-31 01:48] VITALS: TEMP 97.7; O2SAT 100
[2020-01-31 01:51] VITALS: BP 118/81
--- NOTE | 2020-01-31 10:14 | RAD REPORT ---
EXAM DESCRIPTION: CT - Head Brain Wo Cont - 01/31/2020 3:58 am CLINICAL HISTORY: Weakness and dizziness. Headache. COMPARISON: None. TECHNIQUE: CT scan of the brain without IV contrast. This exam was performed according to our depa rtmental dose-optimization program, which includes automated exposure control, adjustment of the mA a nd/or kV according to patient size and/or use of iterative reconstruction technique. FINDINGS: The ventricles, cisterns, and sulci are age-appropriate. No evidence of acute infarction, intracrania l hemorrhage, extra-axial fluid collection, or midline shift. No air-fluid levels are seen in the par anasal sinuses to suggest acute sinusitis. No depressed skull fracture. IMPRESSION: No acute intracranial findings. Electronically signed by: Paul Meier MD 01/30/2020 10:44 PM CDT Due to temporary technical issues with the PACS/Fluency reporting system, reports are being signed by the in house radiologist as a courtesy to ensure prompt reporting. The interpreting radiologist is f ully responsible for the content of the report.
--- NOTE | 2020-01-31 10:17 | RAD REPORT ---
EXAM DESCRIPTION: CT - Chest For Pe Angio - 01/31/2020 4:00 am CLINICAL HISTORY: The patient is 24 years old and is Female; palpitations, near syncope, elevated ddimer TECHNIQUE: Axial computed tomographic angiography images of the chest with intravenous contrast. S agittal and coronal reformatted images were created and reviewed. This CT exam was performed using one or more of the following dose reduction techniques: automated exposure control, adjustment of t he mA and/or kV according to patient size, and/or use of iterative reconstruction technique. MIP reconstructed images were created and reviewed. COMPARISON: No relevant prior studies available. FINDINGS: PULMONARY ARTERIES: Unremarkable. No pulmonary embolism. AORTA: No acute findings. No thoracic aortic aneurysm. LUNGS: Unremarkable. No mass. No consolidation. PLEURAL SPACE: Unremarkable. No significant effusion. No pneumothorax. HEART: Unremarkable. No cardiomegaly. No significant pericardial effusion. No evidence of RV dysfunction. BONES/JOINTS: No acute fracture. No dislocation. SOFT TISSUES: Unremarkable. LYMPH NODES: Unremarkable. No enlarged lymph nodes. IMPRESSION: Normal chest CTA. No pulmonary embolism. Electronically signed by: Nahomi Melgar MD 01/31/2020 1:13 AM CDT Due to temporary technical issues with the PACS/Fluency reporting system, reports are being signed by the in house radiologist as a courtesy to ensure prompt reporting. The interpreting radiologist is charlee gentilely responsible for the content of the report.
--- NOTE | 2020-02-01 07:39 | EKG ---
Test Date: 2020-01-30 Test Time: 22:18:27 Photoengraving Finisher: ANASTASIIA MEASUREMENT RESULTS: Intervals: Rate: 88 MS: 124 QRSD: 84 QT: 364 QTc: 440 [place]: P: 30 MS: 124 QRS: 68 T: 36 INTERPRETIVE STATEMENTS: Normal sinus rhythm Normal ECG No previous ECG available for comparison Electronically Signed On 02-01-20 07:35:01 CDT by Case Slater
== END 2020-01-31 01:40 | disposition home or self-care (01) ==
LOC: ER 21:45
DX: R55 Syncope and collapse (principal); Z88.1 Allergy status to other antibiotic agents
CPT/HCPCS: 36415; 70450; 71275; 80048; 81003; 81015; 81025; 85025; 85379; 93005; 96360; 99284; J7030; Q9967

== ENCOUNTER 2020-12-06 06:44 | Emergency (ER) | payer SELFPAY ==
--- NOTE | 2020-12-06 07:06 | ER ---
Nurse's Notes [facility] Name: Edwardo Gonzalez Age: 24 yrs Sex: Female : 1995 Arrival Date: 12/06/2020 Time: 06:45 Bed 4 Private MD: Diagnosis: Anosmia Presentation: 12/06 06:54 Chief complaint: Patient states: woke up at 4 AM and couldn't smell or taste, had em cough, and [place], denies fever. Coronavirus screen: Client denies travel out of the [place] in the last 14 days. runny nose, loss of taste or smell, Client presents with at least one sign or symptom that may indicate coronavirus-19. Standard/surgical mask placed on the client. Provider contacted for isolation considerations. Ebola Screen: Patient negative for fever greater than or equal to 101.5 degrees Fahrenheit, and additional compatible Ebola Virus Disease symptoms Patient denies exposure to infectious person. Patient denies travel to an Ebola-affected area in the 21 days before illness onset. No symptoms or risks identified at this time. Initial Sepsis Screen: Does the patient meet any 2 criteria? No. Patient's initial sepsis screen is negative. Does the patient have a suspected source of infection? No. Patient's initial sepsis screen is negative. Risk Assessment: Do you want to hurt yourself or someone else? Patient reports no desire to harm self or others. Onset of symptoms was December 06, 2020. 06:54 Method Of Arrival: Ambulatory em 06:54 Acuity: MARY 4 em Historical: - Allergies: 06:58 Amoxicillin; em - PMHx: 06:58 scoliosis; em - PSHx: 06:58 Appendectomy; ; em - Immunization history:: Adult Immunizations up to date. - Social history:: Smoking status: Patient denies any tobacco usage or history of. Vital Signs: 06:54 BP 112 / 87; Pulse 94; Resp 18; Temp 98.2(O); Pulse Ox 100% on R/A; Weight 53.07 kg; em Height 4 ft. 11 in. (149.86 cm); Pain 0/10; 06:54 Body Mass Index 23.63 (53.07 kg, 149.86 cm) em ED Course: 06:45 Patient arrived in ED. cl3 06:52 Zoila, Albaro, MD is Attending Physician. tw4 06:57 Triage completed. em 06:58 Arm band placed on. em 07:08 No provider procedures requiring assistance completed. Patient did not have IV access em during this emergency room visit. Administered Medications: No medications were administered Outcome: 07:05 Discharge ordered by . tw4 07:08 Medical screen evaluation completed per provider. Patient declined treatment. em 07:09 Following a medical screening exam, the patient was provided information regarding em alternative care sites and resources available per registration personnel. 07:09 Condition: good em 07:09 Patient left the ED. em Signatures: Parish Edwards, RN RN em Albaro Cummings MD MD tw4 Salo Alvarez cl3
--- NOTE | 2020-12-06 07:06 | EDPHYS ---
Physician Documentation [facility] Name: Edwardo Gonzalez Age: 24 yrs Sex: Female : 1995 Arrival Date: 12/06/2020 Time: 06:45 Bed 4 Private MD: ED Physician Albaro Cummings HPI: 12/06 07:06 This 24 yrs old Female presents to ER via Ambulatory with complaints of tw4 Headache, Shortness Of Breath. 07:06 The patient complains of pain to the forehead. Onset: The symptoms/episode tw4 began/occurred today. Associated signs and symptoms: The patient has no apparent associated signs or symptoms. Severity of symptoms: At its worst the pain was moderate, in the emergency department the pain is unchanged. The patient has not experienced similar symptoms in the past. Historical: - Allergies: 06:58 Amoxicillin; em - PMHx: 06:58 scoliosis; em - PSHx: 06:58 Appendectomy; ; em - Immunization history:: Adult Immunizations up to date. - Social history:: Smoking status: Patient denies any tobacco usage or history of. ROS: 07:06 Constitutional: Negative for fever, chills, and weight loss, Eyes: Negative for injury, tw4 pain, redness, and discharge, Cardiovascular: Negative for chest pain, palpitations, and edema, Respiratory: Negative for shortness of breath, cough, wheezing, and pleuritic chest pain, Abdomen/GI: Negative for abdominal pain, nausea, vomiting, diarrhea, and constipation, Back: Negative for injury and pain, MS/Extremity: Negative for injury and deformity, Skin: Negative for injury, rash, and discoloration. Exam: 07:06 Constitutional: This is a well developed, well nourished patient who is awake, alert, tw4 and in no acute distress. Head/Face: Normocephalic, atraumatic. Chest/axilla: Normal chest wall appearance and motion. Nontender with no deformity. No lesions are appreciated. Cardiovascular: Regular rate and rhythm with a normal S1 and S2. No gallops, murmurs, or rubs. Normal PMI, no JVD. No pulse deficits. Respiratory: Lungs have equal breath sounds bilaterally, clear to auscultation and percussion. No rales, rhonchi or wheezes noted. No increased work of breathing, no retractions or nasal flaring. Abdomen/GI: Soft, non-tender, with normal bowel sounds. No distension or tympany. No guarding or rebound. No evidence of tenderness throughout. MS/ Extremity: Pulses equal, no cyanosis. Neurovascular intact. Full, normal range of motion. Neuro: Awake and alert, GCS 15, oriented to person, place, time, and situation. Cranial nerves II-XII grossly intact. Motor strength 5/5 in all extremities. Sensory grossly intact. Cerebellar exam normal. Normal gait. Vital Signs: 06:54 BP 112 / 87; Pulse 94; Resp 18; Temp 98.2(O); Pulse Ox 100% on R/A; Weight 53.07 kg; em Height 4 ft. 11 in. (149.86 cm); Pain 0/10; 06:54 Body Mass Index 23.63 (53.07 kg, 149.86 cm) em MDM: 06:52 Patient medically screened. tw4 07:06 Data reviewed: vital signs, nurses notes. Medical screen evaluation completed. EMTALA tw4 emergency medical condition absent. Administered Medications: No medications were administered Disposition: 12/06/20 07:05 Discharged to Home. Impression: Anosmia. - Condition is Stable. - Discharge Instructions: Viral Respiratory Infection. - Medication Reconciliation Form, Thank You Letter, Antibiotic Education, Prescription Opioid Use form. - Follow up: Private Physician; When: Upon discharge from the Emergency Department; Reason: Recheck today's complaints, Continuance of care, Re-evaluation by your physician. - Problem is new. - Symptoms have improved. Signatures: Parish Edwards RN RN em Albaro Cummings MD MD tw4 Corrections: (The following items were deleted from the chart) 07:09 07:05 12/06/2020 07:05 Discharged to Home. Impression: Anosmia. Condition is Stable. em Forms are Medication Reconciliation Form, Thank You Letter, Antibiotic Education, Prescription Opioid Use. Follow up: Private Physician; When: Upon discharge from the Emergency Department; Reason: Recheck today's complaints, Continuance of care, Re-evaluation by your physician. Problem is new. Symptoms have improved. tw4
[2020-12-06 07:13] VITALS: BP 112/87; TEMP 98.2; O2SAT 100
== END 2020-12-06 07:09 | disposition home or self-care (01) ==
LOC: ER 06:44
DX: R43.0 Anosmia (principal); Z88.1 Allergy status to other antibiotic agents
CPT/HCPCS: 99281

== ENCOUNTER 2022-04-25 19:56 | Emergency (ER) | payer SELFPAY ==
[2022-04-25] MEDS ORDERED: ONDANSETRON 4 MG/2 ML VIAL ONE (20:40)
[2022-04-25] MEDS ORDERED: FAMOTIDINE 20 MG/2 ML VIAL IV ONE (20:40)
[2022-04-25] MEDS ORDERED: NA CHLORIDE 0.9% 1,000 ML ONE ×2 (20:40→22:06)
[2022-04-25 20:43] LABS: Absolute Lymphocytes (CBC) 0.7 K/uL (0.7-4.9); Hematocrit 39.1 % (36.0-45.0); Lymphocytes % 6.5 % (15.3-44.8); MCV 83.1 fL (80-100); MPV 8.5 fL (7.6-11.3); RBC Red Blood Cell Count 4.71 M/uL (3.86-4.86)
[2022-04-25 21:06] LABS: ALT/SGPT 18 U/L (12-78); AST/SGOT 8 U/L (15-37); Albumin 4.1 g/dL (3.4-5.0); Alkaline Phosphatase 96 U/L (45-117); BUN Blood Urea Nitrogen 14 mg/dL (7-18); Bicarbonate 24 mmol/L (21-32); Bilirubin Direct 0.2 mg/dL (0-0.2); Bilirubin Total 0.7 mg/dL (0.2-1.0); Glomerular Filtration Rate 116 ml/min (=/>90); Glucose Level 100 mg/dL (74-106); Magnesium 2.2 mg/dL (1.8-2.4); Protein, Total 8.4 g/dL (6.4-8.2); Sodium Level 138 mmol/L (136-145); Troponin High Sensitivity < 3.0 pg/mL (<58.9)
[2022-04-25 21:07] LABS: Potassium 2.9 mmol/L (3.5-5.1)
[2022-04-25 21:12] LABS: Urine Blood 2+ (Negative); Urine Glucose Negative (Negative); Urine Protein 1+ (Negative); Urine Specific Gravity 1.025 (1.005-1.030)
[2022-04-25] MEDS ORDERED: KETOROLAC 30 MG/ML INJ ONE (21:24)
[2022-04-25] MEDS ORDERED: POTASSIUM CL SA 10 MEQ TAB PO ONE (21:24)
[2022-04-25 21:31] LABS: Barbiturates NEGATIVE (NEGATIVE); Benzodiazepines NEGATIVE (NEGATIVE); Cocaine NEGATIVE (NEGATIVE); METHAMPHETAM NEGATIVE (NEGATIVE); Methadone NEGATIVE (NEGATIVE); Opiates NEGATIVE (NEGATIVE); Phencyclidine NEGATIVE (NEGATIVE); THC Cannibis POSITIVE (NEGATIVE)
--- NOTE | 2022-04-25 22:00 | RAD REPORT ---
EXAM DESCRIPTION: RAD - Chest Single View - 04/25/2022 8:59 pm CLINICAL HISTORY: CHEST PAIN COMPARISON: None TECHNIQUE: AP portable chest image was obtained 04/25/2022 8:59 pm . FINDINGS: Lungs are clear. Heart and vasculature are normal. No measurable pleural effusion and no p neumothorax. No acute bony abnormality seen. No acute aortic findings suspected. IMPRESSION: No acute cardiopulmonary process.
--- NOTE | 2022-04-25 22:07 | RAD REPORT ---
EXAM DESCRIPTION: CT - Abdomen Pelvis W Contrast - 04/25/2022 9:34 pm CLINICAL HISTORY: Epigastric pain COMPARISON: CT study January 2015 TECHNIQUE: Biphasic, helical CT imaging of the abdomen and pelvis was performed following 100 ml non -ionic IV contrast. No oral contrast administered. All CT scans are performed using dose optimization technique as appropriate and may include automated exposure control or mA/KV adjustment according to patient size. FINDINGS: No suspicious findings in the lung bases. The liver, spleen, and pancreas show no suspicious findings. Gallbladder and biliary tree are also wi thout suspicious finding. Symmetric renal function is seen with no hydronephrosis or suspicious renal mass. No pyelonephritis o r acute parenchymal process. No bladder abnormalities. No adrenal abnormalities. Uterus and ovaries s how no suspicious findings. No dilated bowel loops or bowel wall thickening. Appendectomy clips are in place. No free air, free f luid or inflammatory stranding. No hernia, mass or bulky lymphadenopathy. No suspicious bony findings. IMPRESSION: Contrast enhanced CT abdomen and pelvis showing no acute or emergent finding.
[2022-04-25 22:16] LABS: Urine Specific Gravity/Preg 1.025 (1.005-1.030)
[2022-04-25] MEDS ORDERED: PROMETHAZINE INJ 25 MG/ML AMP ONE (22:29)
--- NOTE | 2022-04-25 23:45 | EDPHYS ---
Physician Documentation [facility] Name: Edwardo Gonzalez Age: 26 yrs Sex: Female : 1995 Arrival Date: 04/25/2022 Time: 19:57 Bed 20 Private MD: ED Physician Arie Gagnon HPI: 04/25 20:10 This 26 yrs old Female presents to ER via Wheelchair with complaints of Chest pm1 Pain, Shortness Of Breath. 20:10 The patient or guardian reports chest pain that is located primarily in the mid-sternal pm1 area. The pain does not radiate. Associated signs and symptoms: Pertinent positives: abdominal pain, nausea, shortness of breath, vomiting, Pertinent negatives: cough. The chest pain is described as aching. Duration: The patient or guardian reports a single episode, that is still ongoing. Modifying factors: The symptoms are alleviated by nothing. the symptoms are aggravated by nothing. Severity of pain: in the emergency department the pain is actually worse. The patient has not experienced similar symptoms in the past. The patient has not recently seen a physician. 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 - Social history:: Smoking status: Patient denies any tobacco usage or history of. Patient uses street drugs, marijuana. ROS: 20:10 Constitutional: Negative for fever, chills, and weight loss. pm1 20:10 Back: Negative for injury and pain, MS/Extremity: Negative for injury and deformity, Skin: Negative for injury, rash, and discoloration, Neuro: Negative for headache, weakness, numbness, tingling, and seizure. 20:10 Cardiovascular: Positive for chest pain, Negative for edema, palpitations. 20:10 Respiratory: Positive for shortness of breath, Negative for cough. 20:10 Abdomen/GI: Positive for abdominal pain, nausea and vomiting, of the epigastric area, Negative for diarrhea. 20:10 All other systems are negative. Exam: 20:10 Constitutional: This is a well developed, well nourished patient who is awake, alert, pm1 and in no acute distress. Head/Face: Normocephalic, atraumatic. 20:10 Back: No spinal tenderness. No costovertebral tenderness. Full range of motion. Skin: Warm, dry with normal turgor. Normal color with no rashes, no lesions, and no evidence of cellulitis. MS/ Extremity: Pulses equal, no cyanosis. Neurovascular intact. Full, normal range of motion. 20:10 Cardiovascular: Rate: tachycardic, Rhythm: regular, Pulses: 20:10 Respiratory: Exam negative for acute changes, respiratory distress, shortness of breath, Breath sounds: are clear throughout. 20:10 Abdomen/GI: Inspection: abdomen appears normal, Palpation: soft, in all quadrants, mild abdominal tenderness, in the epigastric area. 20:10 Neuro: Exam negative for acute changes, Orientation: is normal, Mentation: is normal, Motor: is normal, moves all fours. Vital Signs: 20:00 BP 118 / 86; Pulse 107; Resp 18; Pulse Ox 100% on R/A; vc1 20:06 BP 128 / 81; Pulse 96; Resp 12; Pulse Ox 100% on R/A; Weight 40.37 kg (R); Height 4 ft. lp1 11 in. (149.86 cm); Pain 10/10; 22:28 Temp 98.3(O); vc1 22:46 BP 98 / 59; Pulse 84; Resp 14; Pulse Ox 100% ; vc1 20:06 Body Mass Index 17.98 (40.37 kg, 149.86 cm) lp1 MDM: 20:05 Patient medically screened. pm1 23:28 Data reviewed: vital signs. Data interpreted: Pulse oximetry: on room air is 100 %. pm1 Interpretation: normal. 23:43 Counseling: I had a detailed discussion with the patient and/or guardian regarding: the pm1 historical points, exam findings, and any diagnostic results supporting the discharge/admit diagnosis, lab results, radiology results, the need for outpatient follow up, to return to the emergency department if symptoms worsen or persist or if there are any questions or concerns that arise at home. 04/25 20:10 Order name: Basic Metabolic Panel; Complete Time: 21:09 pm1 04/25 20:10 Order name: CBC with Diff; Complete Time: 21:09 pm1 04/25 20:10 Order name: LFT's; Complete Time: 21:09 pm1 04/25 20:10 Order name: Magnesium; Complete Time: 21:09 pm1 04/25 20:10 Order name: Troponin HS; Complete Time: 21:09 pm1 04/25 20:10 Order name: UDS; Complete Time: 21:53 pm1 04/25 20:10 Order name: XRAY Chest (1 view); Complete Time: 22:17 pm1 04/25 20:10 Order name: CT Abd/Pelvis - IV Contrast Only; Complete Time: 22:17 pm1 04/25 21:12 Order name: Urine Dipstick-Ancillary; Complete Time: 21:22 EDMS 04/25 21:14 Order name: Urine Dipstick-Ancillary EDMS 04/25 21:16 Order name: Urine --Ancillary (enter results); Complete Time: 22:17 04/25 20:10 Order name: EKG; Complete Time: 20:11 pm1 04/25 20:10 Order name: Cardiac monitoring; Complete Time: 20:29 pm1 04/25 20:10 Order name: EKG - Nurse/Tech; Complete Time: 20:29 pm1 04/25 20:10 Order name: IV Saline Lock; Complete Time: 20:29 pm1 04/25 20:10 Order name: Labs collected and sent; Complete Time: 20:29 pm04/25 20:10 Order name: O2 Per Protocol; Complete Time: 20:29 pm04/25 20:10 Order name: O2 Sat Monitoring; Complete Time: 20:29 pm1 04/25 20:10 Order name: Urine Dipstick-Ancillary (obtain specimen); Complete Time: 21:13 pm1 04/25 20:10 Order name: Urine Test (obtain specimen); Complete Time: 21:13 pm1 Administered Medications: 20:39 Drug: NS 0.9% 1000 ml Route: IV; Rate: 1000 ml; Site: right antecubital; vc1 20:39 Drug: Pepcid (famotidine) 20 mg Route: IVP; Site: right antecubital; vc1 22:35 Follow up: Response: No adverse reaction vc1 20:39 Drug: Zofran (Ondansetron) 4 mg Route: IVP; Site: right antecubital; vc1 21:15 Follow up: Response: No adverse reaction; Marked relief of symptoms; Nausea is decreasedvc1 21:22 Drug: Potassium Chloride 40 mEq Route: PO; vc1 22:34 Follow up: Response: No adverse reaction vc1 21:22 Drug: Ketorolac 15 mg Route: IVP; Site: right antecubital; vc1 22:34 Follow up: Response: No adverse reaction; Marked relief of symptoms; Pain is decreased vc1 22:16 Drug: NS 0.9% 1000 ml Route: IV; Rate: 1000 ml; Site: right antecubital; vc1 22:29 Drug: Phenergan (promethazine) 12.5 mg Route: IVP; Site: right antecubital; vc1 Disposition Summary: 04/25/22 23:44 Discharge Ordered Location: Home pm1 Problem: new pm1 Symptoms: have improved pm1 Condition: Stable pm1 Diagnosis - Cannabis abuse pm1 - Abdominal pain, unspecified pm1 - Chest pain, unspecified pm1 Followup: pm1 - With: Emergency Department - When: As needed - Reason: Worsening of condition Followup: pm1 - With: Private Physician - When: 2 - 3 days - Reason: Recheck today's complaints, Continuance of care, Re-evaluation by your physician Discharge Instructions: - Discharge Summary Sheet pm1 - Abdominal Pain, Adult pm1 - Nonspecific Chest Pain, Adult pm1 - Cannabis Use Disorder pm1 - Cannabinoid Hyperemesis Syndrome pm1 Forms: - Medication Reconciliation Form pm1 - Thank You Letter pm1 - Antibiotic Education pm1 - Prescription Opioid Use pm1 Prescriptions: - Pepcid 20 mg Oral Tablet - take 1 tablet by ORAL route every 12 hours for 10 days; 20 tablet; Refills: 0, pm1 Product Selection Permitted - promethazine 25 mg Oral Tablet - take 1 tablet by ORAL route every 6 hours As needed; 20 tablet; Refills: 0, pm1 Product Selection Permitted - dicyclomine 20 mg Oral Tablet - take 1 tablet by ORAL route 4 times per day As needed; 20 tablet; Refills: 0, pm1 Product Selection Permitted Signatures: Dispatcher [employer] Faustina Mejia RN RN lp1 Chava Krishnan NP WIND ENERGY ENGINEER pm1 Deepthi Head RN RN vc1 Jennifer Peraza, PA PA sb3
--- NOTE | 2022-04-25 23:45 | ER ---
Nurse's Notes [facility] Name: Edwardo Gonzalez Age: 26 yrs Sex: Female : 1995 Arrival Date: 04/25/2022 Time: 19:57 Bed 20 Private MD: Diagnosis: Cannabis abuse;Abdominal pain, unspecified;Chest pain, unspecified Presentation: 04/25 20:02 Acuity: MARY 3 lp1 20:06 Chief complaint: Patient states: Chest pain x 2 hours with reported shortness of lp1 breath, reports she has been vomiting all day today; Reports "it feels like something is sitting on my chest". Coronavirus screen: vomiting. Ebola Screen: No symptoms or risks identified at this time. Initial Sepsis Screen: Does the patient meet any 2 criteria? No. Patient's initial sepsis screen is negative. Does the patient have a suspected source of infection? No. Patient's initial sepsis screen is negative. Risk Assessment: Do you want to hurt yourself or someone else? Patient reports no desire to harm self or others. Onset of symptoms was April 25, 2022. 20:06 Method Of Arrival: Wheelchair lp1 Triage Assessment: 20:40 General: Appears in no apparent distress. uncomfortable, ill, slender, Behavior is vc1 anxious. Pain: Complains of pain in chest Pain does not radiate. Pain currently is 10 out of 10 on a pain scale. Quality of pain is described as sharp, Noted to be crying, grimacing. EENT: No deficits noted. Neuro: Level of Consciousness is awake, alert, obeys commands, Oriented to person, place, time, situation, Appropriate for age. Cardiovascular: Reports chest pain, nausea, shortness of breath. Respiratory: Airway is patent Respiratory effort is even, unlabored, Respiratory pattern is regular, symmetrical, the patient has mild shortness of breath. GI: Abdomen is flat, Pt is actively vomiting clear fluid, Reports nausea, vomiting. : No deficits noted. Derm: No deficits noted. Musculoskeletal: No signs and/or symptoms reported regarding the musculoskeletal system. BRICK BURNER HEAD: 20:08 LMP 04/12/2022 lp1 Historical: - Allergies: 20:08 Amoxicillin; lp1 - Home Meds: 20:08 None [Active]; lp1 - PMHx: 20:08 scoliosis; Gastritis; lp1 - PSHx: 20:08 Appendectomy; section; lp1 - Immunization history:: Adult Immunizations up to date. - Social history:: Smoking status: Patient denies any tobacco usage or history of. Patient uses street drugs, marijuana. Screenin:40 Abuse screen: Denies threats or abuse. Nutritional screening: No deficits noted. vc1 Tuberculosis screening: No symptoms or risk factors identified. Fall Risk None identified. Assessment: 20:42 Reassessment: See triage assessment. vc1 22:46 Reassessment: Patient and/or family updated on plan of care and expected duration. Pain vc1 level reassessed. Patient is alert, oriented x 3, equal unlabored respirations, skin warm/dry/pink. Patient states feeling better. Patient states symptoms have improved. 23:58 Reassessment: Patient and/or family updated on plan of care and expected duration. Pain vc1 level reassessed. Patient is alert, oriented x 3, equal unlabored respirations, skin warm/dry/pink. Patient states feeling better. Patient states symptoms have improved. Vital Signs: 20:00 BP 118 / 86; Pulse 107; Resp 18; Pulse Ox 100% on R/A; vc1 20:06 BP 128 / 81; Pulse 96; Resp 12; Pulse Ox 100% on R/A; Weight 40.37 kg (R); Height 4 ft. lp1 11 in. (149.86 cm); Pain 10/10; 22:28 Temp 98.3(O); vc1 22:46 BP 98 / 59; Pulse 84; Resp 14; Pulse Ox 100% ; vc1 20:06 Body Mass Index 17.98 (40.37 kg, 149.86 cm) lp1 ED Course: 19:57 Patient arrived in ED. vc1 20:01 Chava Krishnan NP is PHCP. pm1 20:01 Arie Gagnon MD is Attending Physician. pm1 20:02 Triage completed. lp1 20:08 Arm band placed on right wrist. lp1 20:08 Patient has correct armband on for positive identification. Bed in low position. Client lp1 placed on continuous cardiac and pulse oximetry monitoring. NIBP monitoring applied. 20:20 Deepthi Head RN is Primary Nurse. vc1 20:40 Inserted saline lock: 20 gauge in right antecubital area, using aseptic technique. vc1 Blood collected. 21:01 XRAY Chest (1 view) In Process Unspecified. EDMS 21:10 Notified Nurse Practitioner and/or Physician Physician/Ophthalmologist of a critical lab result(s), bb potassium of 2.9 Chava Krishnan NP notified. 21:36 CT Abd/Pelvis - IV Contrast Only In Process Unspecified. EDMS 23:58 No provider procedures requiring assistance completed. IV discontinued, intact, vc1 bleeding controlled, No redness/swelling at site. Pressure dressing applied. Administered Medications: 20:39 Drug: NS 0.9% 1000 ml Route: IV; Rate: 1000 ml; Site: right antecubital; vc1 20:39 Drug: Pepcid (famotidine) 20 mg Route: IVP; Site: right antecubital; vc1 22:35 Follow up: Response: No adverse reaction vc1 20:39 Drug: Zofran (Ondansetron) 4 mg Route: IVP; Site: right antecubital; vc1 21:15 Follow up: Response: No adverse reaction; Marked relief of symptoms; Nausea is decreasedvc1 21:22 Drug: Potassium Chloride 40 mEq Route: PO; vc1 22:34 Follow up: Response: No adverse reaction vc1 21:22 Drug: Ketorolac 15 mg Route: IVP; Site: right antecubital; vc1 22:34 Follow up: Response: No adverse reaction; Marked relief of symptoms; Pain is decreased vc1 22:16 Drug: NS 0.9% 1000 ml Route: IV; Rate: 1000 ml; Site: right antecubital; vc1 22:29 Drug: Phenergan (promethazine) 12.5 mg Route: IVP; Site: right antecubital; vc1 Medication: 23:58 VIS not applicable for this client. vc1 Outcome: 23:44 Discharge ordered by MD. pm1 23:58 Discharged to home ambulatory. vc1 23:58 Condition: good 23:58 Discharge instructions given to patient, Instructed on discharge instructions, follow up and referral plans. medication usage, Demonstrated understanding of instructions, follow-up care, medications, Prescriptions given X 3. 23:58 Patient left the ED. vc1 Signatures: Dispatcher [employer] EDMS Sharifa Vences RN RN bb Faustina Oleary RN RN lp1 Chava Krishnan NP TEXTILE EXAMINER pm1 Deepthi Head RN RN vc1 Corrections: (The following items were deleted from the chart) 21:26 21:25 Notified Nurse Practitioner and/or Physician Physician/Ophthalmologist of a critical lab bb result(s), potassium of 2.9 Chava Krishnan TEXTILE EXAMINER notified bb
[2022-04-26 00:36] VITALS: O2SAT 100
[2022-04-26 00:43] VITALS: TEMP 98.3
[2022-04-26 00:44] VITALS: BP 98/59
--- NOTE | 2022-04-27 08:00 | EKG ---
Test Date: 2022-04-25 Test Time: 20:30:21 Hydraulic Tester: JESIKA MEASUREMENT RESULTS: Intervals: Rate: 86 CT: 128 QRSD: 82 QT: 356 QTc: 426 [place]: P: 19 CT: 128 QRS: 87 T: 60 INTERPRETIVE STATEMENTS: Normal sinus rhythm with sinus arrhythmia Normal ECG Compared to ECG 01/30/2020 22:18:27 No significant changes Electronically Signed On 04-27-22 07:55:44 CDT by Case Slater
== END 2022-04-25 23:58 | disposition home or self-care (01) ==
LOC: ER 19:56
DX: R07.9 Chest pain, unspecified (principal); F12.10 Cannabis abuse, uncomplicated; R10.9 Unspecified abdominal pain; Z88.1 Allergy status to other antibiotic agents
CPT/HCPCS: 36415; 71045; 74177; 80048; 80076; 80307; 81003; 81025; 83735; 84484; 85025; 93005; 96374; 96375; 99284; J2405; J2550; J3490; J7030; Q9967